=== PATIENT | female | born 1955 | race Caucasian/White ===

== ENCOUNTER 2019-06-10 12:30 | Inpatient (IN) | payer OTHER ==
[~2019-06-10] VITALS: Ht 167.6 cm; Wt 64.7 kg
--- NOTE | 2019-06-10 12:34 | NUR ---
BIB ems frm [facility] for hyponatremia Na 126, pt to bed 7, pt on monitor, vss, pending md peterson
[2019-06-10] MEDS ORDERED: CHLO118L4 TP (13:09)
[2019-06-10] MEDS ORDERED: LEVE500T20 GT (13:09)
[2019-06-10] MEDS ORDERED: DEXT15DR6 OP (13:09)
[2019-06-10] MEDS ORDERED: SIME80TA15 GT (13:09)
[2019-06-10] MEDS ORDERED: SACC250C GT (13:09)
[2019-06-10] MEDS ORDERED: BISA10SU61 RC (13:09)
[2019-06-10] MEDS ORDERED: LORA2TAB95 GT (13:09)
[2019-06-10] MEDS ORDERED: NYST5ORA PO (13:09)
[2019-06-10] MEDS ORDERED: SENN-261 GT (13:09)
[2019-06-10] MEDS ORDERED: DILT-32 GT (13:09)
[2019-06-10] MEDS ORDERED: ARGI1POW17 GT (13:09)
[2019-06-10] MEDS ORDERED: MYCO250C PO (13:09)
[2019-06-10] MEDS ORDERED: MAGN400O6 GT (13:09)
[2019-06-10] MEDS ORDERED: MAGN400T8 GT (13:09)
[2019-06-10] MEDS ORDERED: HYDR-4075 PO (13:09)
[2019-06-10] MEDS ORDERED: POLY17PO4 PO (13:09)
[2019-06-10] MEDS ORDERED: VIT1TABL46 PO (13:09)
[2019-06-10] MEDS ORDERED: THIA100T88 PO (13:09)
[2019-06-10] MEDS ORDERED: MODAFINIL PO (13:09)
[2019-06-10] MEDS ORDERED: HEPA1DIS12 SUBCUT (13:09)
[2019-06-10] MEDS ORDERED: ASCO500C16 GT (13:09)
[2019-06-10] MEDS ORDERED: NA P133E RC (13:09)
[2019-06-10] MEDS ORDERED: CRAN3875 GT (13:09)
[2019-06-10] MEDS ORDERED: ALBU2.5V13 IH (13:09)
[2019-06-10] MEDS ORDERED: LACO100T2 GT (13:09)
[2019-06-10 13:21] LABS: BASOPHILS # (AUTO) 0.1 /CMM (0.0-0.2); BASOPHILS % (AUTO) 0.9 % (0.0-2.0); EOSINOPHILS % (AUTO) 1.4 % (0.0-6.0); HEMATOCRIT 30 % (33-45); HEMOGLOBIN 10.4 g/dL (11.5-14.8); LYMPHOCYTES # (AUTO) 1.3 /CMM (0.8-4.8); LYMPHOCYTES % (AUTO) 15.5 % (20.0-44.0); MEAN CORPUSCULAR HGB CONC 35 g/dl (31.0-36.0); MEAN CORPUSCULAR VOLUME 90 fL (82-100); MONOCYTES # (AUTO) 0.5 /CMM (0.1-1.30); MONOCYTES % (AUTO) 6.1 % (2.0-12.0); NEUTROPHILS # (AUTO) 6.5 /CMM (1.8-8.9); NEUTROPHILS % (AUTO) 76.1 % (43.0-81.0); PLATELET COUNT (AUTO) 341 /CMM (150-450); RED BLOOD CELL COUNT(AUTO) 3.29 MIL/uL (4.0-5.2); WHITE BLOOD COUNT (AUTO) 8.5 K/uL (4.3-11.0)
[2019-06-10 13:39] LABS: ALBUMIN 2.2 g/dL (3.4-5.0); BILIRUBIN,DIRECT 0.1 mg/dL (0.0-0.2); BILIRUBIN,TOTAL 0.3 mg/dL (0.2-1.0); CALCIUM, SERUM 8.6 mg/dL (8.5-10.1); CREATININE 2.2 mg/dL (0.6-1.3); POTASSIUM 4.1 mmol/L (3.5-5.1); TOTAL PROTEIN, SERUM 5.6 g/dL (6.4-8.2)
[2019-06-10 13:39] LABS: APPEARANCE,URINE Clear (CLEAR); BILIRUBIN,URINE Negative (NEGATIVE); BLOOD, URINE Negative Ery/uL (NEGATIVE); COLOR,URINE Yellow (YELLOW); KETONES,URINE Negative (NEGATIVE); LEUKOCYTE ESTERASE ,URINE Negative (NEGATIVE); NITRITE, URINE Negative (NEGATIVE); PROTEIN,URINE Negative (NEGATIVE); UGLUCOSE Negative (NEGATIVE); UROBILINOGEN,URINE 0.2 EU/dL (0.2)
--- NOTE | 2019-06-10 15:46 | NUR ---
called for report nurse not available
--- NOTE | 2019-06-10 15:49 | NUR ---
report given to chaka rn for gustavo pt will be transported to 1st floor
[2019-06-10] MEDS ORDERED: NA PHOS,M-B/NA PHOS,DI-BA 1 EA ENEMA RC PRN (16:00)
[2019-06-10] MEDS ORDERED: POLYETHYLENE GLYCOL 3350 17 GM POWD.PACK PO PRN (16:00)
[2019-06-10] MEDS ORDERED: BISACODYL SUPP (10 MG) 10 MG/SUPP.RECT SUPP.RECT RC PRN (16:00)
[2019-06-10] MEDS ORDERED: ALBUTEROL FS 2.5 MG/0.5 ML VIAL.NEB IH PRN (16:00)
[2019-06-10] MEDS ORDERED: MAGNESIUM HYDROXIDE 30 ML UDC GT PRN (16:00)
--- NOTE | 2019-06-10 16:14 | NUR ---
pt transported to 1st floor
[2019-06-10 16:30] VITALS: BP 140/79
[2019-06-10] MEDS ORDERED: ACETAMINOPHEN 325 MG TABLET PO PRN (16:30)
[2019-06-10] MEDS ORDERED: MAG HYDROX/AL HYDROX/SIMETH 30 ML UDC PO PRN (16:30)
[2019-06-10] MEDS ORDERED: Z GUARD REMEDY 2 OZ OINT TP PRN (16:30)
[2019-06-10] MEDS ORDERED: ONDANSETRON HCL/PF 4 MG/2 ML VIAL IVP PRN (16:30)
[2019-06-10] MEDS ORDERED: MAGNESIUM HYDROXIDE 30 ML UDC PO PRN (16:30)
[2019-06-10] MEDS ORDERED: Medication Not On Formulary EA (Cran/Vitc/Mannose/Inulin/Brom (Uti-Stat Liquid) 3,875 MG GT SCH (17:00)
[2019-06-10] MEDS ORDERED: Medication Not On Formulary EA (Argin/Glut/Cahmb/Collag/Mv-Min (Juven Packet) 1 EACH) GT SCH (17:00)
--- NOTE | 2019-06-10 17:33 | NUR ---
INJECTION MAINTENANCE TECHNICIAN OPENING NOTES RECEIVED PATIENT FROM [facility], REGISTRY NURSE. PATIENT WAS BROUGHT IN FROM ER. DID NOT GET REPORT FROM ER BECAUSE THE PATIENT WAS INITIALLY GOING TO [facility]. PATIENT IS CURRENTLY IN STABLE CONDITION, PLACED ON TELE MONITOR. SINUS RHYTHM/SINUS TACHY AT 102BPM. GENERALIZED EDEMA PRESENT. RECEIVED PATIENT AT 1612. VITAL SIGNS STABLE WITH BP AT140/79. ON AEROSOL OXYGEN 6L. SATURATING WELL. PATIENT SUCTIONED. HAS A TRACH PRESENT. NO SIGNS OF ACUTE RESPIRATORY DISTRESS NOTED. SAFETY MAINTAINED, CALL LIGHT WITHIN REACH, WILL CONTINUE TO MONITOR.
[2019-06-10] MEDS: POLYVINYL ALCOHOL 15 ML BOTTLE EACHEYE SCH (18:30)
[2019-06-10] MEDS: IV NS 0.9% 1,000 ML IV PRN (19:00)
[2019-06-10] MEDS ORDERED: LORAZEPAM 1 MG TABLET GT PRN (19:00)
[2019-06-10] MEDS: hydrALAZINE HCL 10 MG TABLET PO SCH (19:06)
[2019-06-10] MEDS: CHLORHEXIDINE GLUCONATE 15 ML UDC MM SCH (19:06)
[2019-06-10] MEDS: MYCOPHENOLATE MOFETIL 250 MG CAPSULE PO SCH (19:06)
[2019-06-10 20:00] VITALS: BP 161/65
--- NOTE | 2019-06-10 20:09 | NUR ---
SENIOR SALESFORCE DEVELOPER CLOSING NOTES PATIENT ENDORSED TO CEMENT GRINDING MILL OPERATOR NURSE TO CONTINUE CARE. IN STABLE CONDITION, BP MEDICATION AND OTHER SCHEDULED MEDICATIONS ADMINISTERED AFTER THEY WERE VERIFIED BY THE PHARMACY. ADMISSION PAPERWORK IS COMPLETE, PHYSICAL ASSESSMENT WAS DONE AND DOCUMENTED. PATIENT HAS MULTIPLE WOUNDS PRESET, PICTURES WERE TAKEN AND PLACED IN THE CHART. ON AEROCELL 6L SATURATING AT 100%. PATIENT WAS CLEANED, SKIN KEPT CLEAN AND DRY. ALL PATIENT NEEDS MET, SAFETY MAINTAINED, CALL LIGHT WITHIN REACH, CEMENT GRINDING MILL OPERATOR NURSE WILL CONTINUE CARE.
--- NOTE | 2019-06-10 20:10 | NUR ---
INFORMATICS PHYSICIAN LIAISON OPENING NOTES RECEIVED PATIENT FROM AM RN. PATIENT IS CURRENTLY IN STABLE CONDITION, ON TELE MONITOR. SR/ST AT 100s. GENERALIZED EDEMA PRESENT. ON AEROSOL OXYGEN 6L. SATURATING WELL. HAS A TRACH PRESENT. NO SIGNS OF ACUTE RESPIRATORY DISTRESS NOTED AT THIS TIME. SAFETY MAINTAINED, CALL LIGHT WITHIN REACH, WILL CONTINUE TO MONITOR.
--- NOTE | 2019-06-10 20:12 | NUR ---
DID NOT ADMINISTER ARTIFICIAL TEARS BECAUSE THEY WERE NOT YET AVAILABLE. ENDORSED TO BATTERY TESTER FIELD NURSE, WILL GIVE THE NEXT DOSE.
--- NOTE | 2019-06-10 21:05 | NUR ---
REPORT GIVEN TO TAYLER JACKSON FOR BEAR.
[2019-06-10] MEDS: LACTOBACILLUS RHAMNOSUS GG 1 EACH CAP.SPRINK GT SCH (21:06)
[2019-06-10] MEDS: MODAFINIL 100 MG TABLET PO SCH (21:06)
--- NOTE | 2019-06-10 21:07 | NUR ---
RECEIVED REPORT FROM RUKHSANA FOR BEAR
--- NOTE | 2019-06-10 21:08 | NUR ---
PALMIRA RN OPENING NOTES PATIENT OBTUNDED, ON T-PIECE 5L/MIN, 28% FIO2 , NO SIGNS OF RESPIRATORY DISTRESS NOTED. SINUS TACHY ON TELE MONITOR, HR 103. BILATERAL UPPER EXTREMITY PITTING EDEMA NOTED, BILATERAL LOWER EXTREMITY PITTING EDEMA NOTED. RIGHT UPPER ARM MIDLINE INTACT, PATENT, NS INFUSING AT 125CC/HR. BED IN LOW POSITION, LOCKED, CALL LIGHT WITHIN REACH.
[2019-06-10] MEDS: LEVETIRACETAM SOL (5 ML) 100 MG/ML UDC GT SCH (21:10)
[2019-06-10] MEDS: SIMETHICONE 80 MG TAB.CHEW GT SCH (21:10)
[2019-06-10] MEDS: NYSTATIN (PYXIS) 500,000 UNIT/5 ML ORAL.SUSP PO SCH (21:10)
[2019-06-10] MEDS: SENNOSIDES 8.6 MG TABLET GT SCH (21:10)
[2019-06-10] MEDS: LACOSAMIDE 50 MG TABLET GT SCH (21:11)
[2019-06-10] MEDS: HEPARIN SODIUM, PORCINE 5000 UNITS/1 ML VIAL SQ SCH (21:11)
[2019-06-11] VITALS: BP 124/68
--- NOTE | 2019-06-11 01:00 | NUR ---
called epic- spoke with jazmin sullivan to obtain orders to resume nephro feeding from snf 40cc/hr x 20 hours
[2019-06-11] MEDS: NEPRO 1,000 ML BOTTLE GT PRN ×2 (01:08→21:44)
[2019-06-11] MEDS: IV NS 0.9% 1,000 ML IV PRN ×3 (02:53→19:11)
[2019-06-11 04:00] VITALS: BP 146/66
--- NOTE | 2019-06-11 06:28 | NUR ---
PALMIRA RN OPENING NOTES PATIENT OBTUNDED, ON T-PIECE 6L/MIN, 28% FIO2 , NO SIGNS OF RESPIRATORY DISTRESS NOTED. SINUS TACHY ON TELE MONITOR. BILATERAL UPPER EXTREMITY PITTING EDEMA NOTED, BILATERAL LOWER EXTREMITY PITTING EDEMA NOTED. RIGHT UPPER ARM MIDLINE INTACT, PATENT, NS INFUSING AT 125CC/HR. NEPHRO INFUSING AT 40CC/HR, TOLERATING FEEDING WELL. PROVIDED SAFETY AND COMFORT TO PT THROUGHOUT SHIFT, ALL DUE MEDS GIVEN, TURNED AND REPOSITIONED PT EVERY 2 HOURS THROUGHOUT SHIFT. BED IN LOW POSITION, LOCKED, CALL LIGHT WITHIN REACH. WILL ENDORSE TO AM NURSE.
[2019-06-11 07:40] LABS: BASOPHILS # (AUTO) 0.1 /CMM (0.0-0.2); EOSINOPHILS % (AUTO) 1.7 % (0.0-6.0); HEMATOCRIT 29 % (33-45); HEMOGLOBIN 10.1 g/dL (11.5-14.8); LYMPHOCYTES # (AUTO) 1.5 /CMM (0.8-4.8); LYMPHOCYTES % (AUTO) 19.7 % (20.0-44.0); MEAN CORPUSCULAR HGB CONC 35 g/dl (31.0-36.0); MEAN CORPUSCULAR VOLUME 90 fL (82-100); MONOCYTES # (AUTO) 0.6 /CMM (0.1-1.30); MONOCYTES % (AUTO) 7.1 % (2.0-12.0); NEUTROPHILS # (AUTO) 5.5 /CMM (1.8-8.9); NEUTROPHILS % (AUTO) 70.5 % (43.0-81.0); RED BLOOD CELL COUNT(AUTO) 3.19 MIL/uL (4.0-5.2); WHITE BLOOD COUNT (AUTO) 7.8 K/uL (4.3-11.0)
[2019-06-11 07:42] LABS: PLATELET COUNT (AUTO) 354 /CMM (150-450)
[2019-06-11 08:00] VITALS: BP 139/63
--- NOTE | 2019-06-11 08:00 | NUR ---
PALMIRA/RN AM SHIFT INITIAL NOTES RECEIVED PT ASLEEP IN BED, PT OBTUNDED, OPEN EYES, NO GRIMACING OR ACUTE CHANGE OF CONDITION NOTED. PT ON COOL AEROSOL WITH 6 L O2, 28% FIO2, SATURATING @ 95%, RESPIRATIONS EVEN & LABORED, DIMINISHED LUNG SOUNDS. PT NOTED WITH GENERALIZED EDEMA. WITH ON GOING IV INFUSION OF NS @ 125CC/HR, IV SITE PATENT WITH NO S/S OF INFECTION. GTF @ 40CC/HR, NO GASTRIC RESIDUAL, FLUSHED, PATENT. PT IS COMFORTABLE, SCHEDULED AM MEDS TO BE GIVEN. CL WITHIN REACHED AND SAFETY MAINTAINED. ON GOING MONITORING.
[2019-06-11 08:25] LABS: CALCIUM, SERUM 8.3 mg/dL (8.5-10.1); CREATININE 2.1 mg/dL (0.6-1.3); POTASSIUM 3.9 mmol/L (3.5-5.1)
[2019-06-11] MEDS: VIT B CMPLX 3/FA/VIT C/BIOTIN 1 TAB TABLET PO SCH (10:07)
[2019-06-11] MEDS: MYCOPHENOLATE MOFETIL 250 MG CAPSULE PO SCH ×2 (10:07→16:51)
[2019-06-11] MEDS: THIAMINE HCL 100 MG TABLET PO SCH (10:07)
[2019-06-11] MEDS: ASCORBIC ACID 500 MG TABLET GT SCH (10:07)
[2019-06-11] MEDS: SIMETHICONE 80 MG TAB.CHEW GT SCH ×2 (10:07→21:37)
[2019-06-11] MEDS: LACOSAMIDE 50 MG TABLET GT SCH ×2 (10:07→21:37)
[2019-06-11] MEDS: LACTOBACILLUS RHAMNOSUS GG 1 EACH CAP.SPRINK GT SCH ×2 (10:08→16:50)
[2019-06-11] MEDS: CHLORHEXIDINE GLUCONATE 15 ML UDC MM SCH ×2 (10:08→16:50)
[2019-06-11] MEDS: POLYVINYL ALCOHOL 15 ML BOTTLE EACHEYE SCH ×2 (10:08→16:54)
[2019-06-11] MEDS: NYSTATIN (PYXIS) 500,000 UNIT/5 ML ORAL.SUSP PO SCH ×4 (10:08→21:37)
[2019-06-11] MEDS: MODAFINIL 100 MG TABLET PO SCH ×2 (10:08→16:50)
[2019-06-11] MEDS: MAGNESIUM OXIDE 400 MG TABLET GT SCH (10:08)
[2019-06-11] MEDS: LEVETIRACETAM SOL (5 ML) 100 MG/ML UDC GT SCH ×2 (10:08→21:38)
[2019-06-11] MEDS: HEPARIN SODIUM, PORCINE 5000 UNITS/1 ML VIAL SQ SCH ×2 (10:10→21:39)
[2019-06-11] MEDS: hydrALAZINE HCL 10 MG TABLET PO SCH ×2 (10:11→16:51)
--- NOTE | 2019-06-11 10:15 | NUR ---
MS1/RN ROUNDS - WOUND CONSULT PT SEEN & EXAMINED BY WOUND NURSE
--- NOTE | 2019-06-11 10:32 | NUR ---
WOUND CARE CONSULT: PT PRESENTS WITH INCONTINENCE AND IMMOBILITY, GENERALIZED EDEMA, BUTTOCKS IRRITATION DUE TO INCONTINENCE, SACRAL BONY AREA WITH BLANCHABLE REDNESS, PRESENT ON ADMISSION. RECOMMENDATIONS MADE FOR SKIN PROTECTION AND DISCUSSED WITH NURSING STAFF. [facility]. WILL SEE PRN. ADAMS IN AGREEMENT WITH PLAN OF CARE. Addendum: 06/11/19 at 1039 by ELENA JACQUES WNDNU Amended: Links added.
[2019-06-11 16:00] VITALS: BP 144/48
[2019-06-11 16:42] LABS: ABG BASE EXCESS -4.5 mmol/L; ABG OXYGEN SATURATION 97.2 % (92.0-98.5); ABG PCO2 26.1 mmHg (35.0-45.0); ABG PH 7.462 (7.350-7.450); ABG PO2 113.6 mmHg (75.0-100.0); AaDO2 55.2 mmHg; COHb 0.2 % (0.5-1.5); MetHb 0.5 % (0.0-1.5); O2Hb 96.5 % (94.0-97.0); SITE, ABG Right Radial; VENT MODE, BG CA 28%
[2019-06-11] MEDS: IPRATROPIUM NEB FS 0.5 MG/2.5 ML AMPUL.NEB NEB SCH ×2 (16:45→21:03)
[2019-06-11] MEDS: PROSOURCE / PROSTAT (PYXIS) 30 ML UDC GT SCH (16:53)
[2019-06-11] MEDS: ALBUTEROL HALF STRENGTH 1.25 MG/3 ML VIAL.NEB NEB SCH ×2 (17:30→21:03)
--- NOTE | 2019-06-11 19:05 | NUR ---
MS RN NOTE RECEIVED PT IN STABLE CONDITION, OBTUNDED, NOTED WITH T-PIECE ON COOL AEROSOL. GTUBE IN PLACE WITH FEEDING INFUSING, MINIMAL RESIDUAL. TEO MIDLINE IN PLACE NOTED WITH IVF INFUSING. ALL CURRENT NEEDS ATTENDED TO. BED LOW, LOCKED, UPPER RAILS UP, AND CALL LIGHT WITHIN REACH. WILL CONT. TO MONITOR.
--- NOTE | 2019-06-11 19:30 | NUR ---
MS RN CLOSING NOTES PT ON STABLE CONDITION NO SIGN AND SYMPTOMS OF RESPIRATORY DISTRESS, NO SIGN OF PAIN NOTED, STILL ON CONTINUOS COOL AEROSOL AT 285 FIO2 AND 5L O2 NO SIGNIFICANT CHANGES ON CONDITION NOTED, ALL NEEDS ATTENDED AND MET, KEPT COMFORTABLY AND SAFELY ON BED WILL ENDORSE TO SUPERVISOR DOCK NURSE
[2019-06-11 19:55] LABS: URINE TOTAL PROTEIN 70.9 mg/dL (0-11.9)
[2019-06-11 19:57] LABS: APPEARANCE,URINE CLOUDY (CLEAR); BILIRUBIN,URINE NEGATIVE (NEGATIVE); BLOOD, URINE SMALL Ery/uL (NEGATIVE); COLOR,URINE YELLOW (YELLOW); KETONES,URINE NEGATIVE (NEGATIVE); LEUKOCYTE ESTERASE ,URINE LARGE (NEGATIVE); NITRITE, URINE NEGATIVE (NEGATIVE); PH,URINE 5.5 (5.0-8.0); PROTEIN,URINE 30 mg/dl (NEGATIVE); UGLUCOSE NEGATIVE (NEGATIVE); UROBILINOGEN,URINE 0.2 EU/dL (0.2)
[2019-06-11 20:27] LABS: BACTERIA,URINE 1+ /HPF (None Seen); RBC,URINE 0-2 /HPF (0-2); SQUAMOUS EPITHELIAL CELL,UR Few /HPF (None Seen); WBC,URINE TOO NUMEROUS TO COUN /HPF (0-3)
[2019-06-11] MEDS: SENNOSIDES 8.6 MG TABLET GT SCH (21:37)
[2019-06-11 21:56] LABS: EOSINOPHIL,URINE None Seen
[2019-06-12] MEDS: IPRATROPIUM NEB FS 0.5 MG/2.5 ML AMPUL.NEB NEB SCH ×7 (00:19→23:51)
[2019-06-12] MEDS: ALBUTEROL HALF STRENGTH 1.25 MG/3 ML VIAL.NEB NEB SCH ×5 (00:19→23:51)
[2019-06-12 04:00] VITALS: BP 135/50
[2019-06-12] MEDS: IV NS 0.9% 1,000 ML IV PRN ×2 (05:25→18:10)
--- NOTE | 2019-06-12 06:18 | NUR ---
MS RN NOTE PT REMAINS IN STABLE CONDITION, OBTUNDED, NOTED WITH T-PIECE ON COOL AEROSOL. GTUBE IN PLACE WITH FEEDING INFUSING, MINIMAL RESIDUAL. TEO MIDLINE IN PLACE NOTED WITH IVF INFUSING. ALL CURRENT NEEDS ATTENDED TO. BED LOW, LOCKED, UPPER RAILS UP, AND CALL LIGHT WITHIN REACH. WILL CONT. TO MONITOR AND ENDORSE TO NEXT SHIFT FOR BEAR.
[2019-06-12 07:28] LABS: BILIRUBIN,TOTAL 0.2 mg/dL (0.2-1.0); CALCIUM, SERUM 8.6 mg/dL (8.5-10.1); CREATININE 1.7 mg/dL (0.6-1.3); MAGNESIUM 1.9 mg/dL (1.8-2.4); PHOSPHORUS 6.3 mg/dL (2.5-4.9); POTASSIUM 3.7 mmol/L (3.5-5.1); TOTAL PROTEIN, SERUM 5.5 g/dL (6.4-8.2)
[2019-06-12 08:00] VITALS: BP 149/59
[2019-06-12] MEDS: POLYVINYL ALCOHOL 15 ML BOTTLE EACHEYE SCH ×2 (09:00→17:56)
[2019-06-12 09:19] LABS: URIC ACID 7.6 mg/dL (2.6-7.2)
[2019-06-12 10:19] LABS: THYROID STIMULATING HORMONE 4.609 uIU/mL (0.358-3.74)
[2019-06-12] MEDS: MAGNESIUM OXIDE 400 MG TABLET GT SCH (10:30)
[2019-06-12] MEDS: LEVETIRACETAM SOL (5 ML) 100 MG/ML UDC GT SCH ×2 (10:30→21:38)
[2019-06-12] MEDS: NYSTATIN (PYXIS) 500,000 UNIT/5 ML ORAL.SUSP PO SCH ×4 (10:30→21:40)
[2019-06-12] MEDS: LACTOBACILLUS RHAMNOSUS GG 1 EACH CAP.SPRINK GT SCH ×2 (10:30→17:54)
[2019-06-12] MEDS: CHLORHEXIDINE GLUCONATE 15 ML UDC MM SCH ×2 (10:30→17:54)
[2019-06-12] MEDS: ASCORBIC ACID 500 MG TABLET GT SCH (10:31)
[2019-06-12] MEDS: LACOSAMIDE 50 MG TABLET GT SCH ×2 (10:31→21:38)
[2019-06-12] MEDS: MODAFINIL 100 MG TABLET PO SCH ×2 (10:31→17:54)
[2019-06-12] MEDS: THIAMINE HCL 100 MG TABLET PO SCH (10:31)
[2019-06-12] MEDS: MYCOPHENOLATE MOFETIL 250 MG CAPSULE PO SCH ×2 (10:31→17:54)
[2019-06-12] MEDS: hydrALAZINE HCL 10 MG TABLET PO SCH ×2 (10:31→17:54)
[2019-06-12] MEDS: VIT B CMPLX 3/FA/VIT C/BIOTIN 1 TAB TABLET PO SCH (10:31)
[2019-06-12] MEDS: SIMETHICONE 80 MG TAB.CHEW GT SCH ×2 (10:31→21:42)
[2019-06-12] MEDS: HEPARIN SODIUM, PORCINE 5000 UNITS/1 ML VIAL SQ SCH ×2 (10:33→21:41)
[2019-06-12] MEDS: PROSOURCE / PROSTAT (PYXIS) 30 ML UDC GT SCH ×2 (10:35→17:55)
[2019-06-12 16:00] VITALS: BP 141/50
--- NOTE | 2019-06-12 19:25 | NUR ---
RN OPEN NOTES RECEIVED PATIENT RESTING IN BED. A/OX1,RESPONSES TO NAME. NO SIGNS OF DISTRESS OR DISCOMFORT. BREATHING EVEN AND UNLABORED. HAS T-PIECE ON 5L O2. HAS TEO MIDLINE WITH NS INFUSING, PATENT AND INTACT, NO SIGNS OF REDNESS OR INFILTRATION. HAS GTUBE INTACT WITH FEEDING RUNNNING, PATIENT TOLERATING WELL. BED IN LOW LOCKED POSITION WITH SIDE RAILS X2. CALL LIGHT WITHIN REACH. WILL CONTINUE TO MONITOR.
[2019-06-12 20:00] VITALS: BP 165/68
[2019-06-12] MEDS: SENNOSIDES 8.6 MG TABLET GT SCH (21:38)
[2019-06-12] MEDS ORDERED: ALBUTEROL HALF STRENGTH 1.25 MG/3 ML VIAL.NEB NEB SCH (23:30)
[2019-06-13] MEDS: ALBUTEROL HALF STRENGTH 1.25 MG/3 ML VIAL.NEB NEB SCH ×6 (03:34→23:18)
[2019-06-13] MEDS: IPRATROPIUM NEB FS 0.5 MG/2.5 ML AMPUL.NEB NEB SCH ×6 (03:34→23:18)
[2019-06-13 04:00] VITALS: BP 157/63
[2019-06-13] MEDS: IV NS 0.9% 1,000 ML IV PRN (04:56)
[2019-06-13] MEDS: NEPRO 1,000 ML BOTTLE GT PRN (04:56)
[2019-06-13 06:07] LABS: PTH, INTACT 18 pg/mL (15-65)
[2019-06-13 06:44] LABS: BASOPHILS % (AUTO) 0.5 % (0.0-2.0); EOSINOPHILS % (AUTO) 0.7 % (0.0-6.0); HEMATOCRIT 26 % (33-45); HEMOGLOBIN 8.9 g/dL (11.5-14.8); LYMPHOCYTES % (AUTO) 12.9 % (20.0-44.0); MEAN CORPUSCULAR HGB CONC 35 g/dl (31.0-36.0); MEAN CORPUSCULAR VOLUME 92 fL (82-100); MONOCYTES # (AUTO) 0.5 /CMM (0.1-1.30); NEUTROPHILS # (AUTO) 5.9 /CMM (1.8-8.9); NEUTROPHILS % (AUTO) 78.9 % (43.0-81.0); PLATELET COUNT (AUTO) 333 /CMM (150-450); RED BLOOD CELL COUNT(AUTO) 2.82 MIL/uL (4.0-5.2); WHITE BLOOD COUNT (AUTO) 7.5 K/uL (4.3-11.0)
--- NOTE | 2019-06-13 06:53 | NUR ---
RN CLOSING NOTES PATIENT RESTING COMFORTABLY IN BED, EASILY AROUSABLE. A/OX1. RESPONSES TO NAME. NO SIGNS OF DISTRESS OR DISCOMFORT. BREATHING EVEN AND UNLABORED. HAS T-PIECE ON 5L O2, TOLERATING WELL. HAS TEO MIDLINE WITH NS INFUSING, PATENT AND INTACT, NO SIGNS OF REDNESS OR INFILTRATION. HAS GTUBE INTACT WITH FEEDING RUNNNING, PATIENT TOLERATING WELL NO RESIDUAL NOTED THROUGHOUT SHIFT. ALL NEEDS MET. NO SIGNIFICANT CHANGES THROUGH THE NIGHT. PATIENT KEPT CLEAN, DRY AND COMFORTABLE. REPOSITIONED Q2H. BED IN LOW LOCKED POSITION WITH SIDE RAILS X2. CALL LIGHT WITHIN REACH. WILL ENDORSE TO AM SHIFT FOR BEAR.
[2019-06-13 07:00] LABS: CALCIUM, SERUM 8.7 mg/dL (8.5-10.1); CREATININE 1.1 mg/dL (0.6-1.3); MAGNESIUM 1.7 mg/dL (1.8-2.4); PHOSPHORUS 4.4 mg/dL (2.5-4.9)
[2019-06-13 08:00] VITALS: BP 171/52
[2019-06-13] MEDS ORDERED: IV NS 0.9% 1,000 ML IV PRN (08:57)
--- NOTE | 2019-06-13 08:58 | NUR ---
MS RN NOTES PER MD BARR CHANGE THE NS RATE FROM 125 ML/H TO 75 ML/HR.
[2019-06-13] MEDS: hydrALAZINE HCL 10 MG TABLET PO SCH ×2 (09:00→17:00)
[2019-06-13] MEDS: POTASSIUM CL. PREMIX PERIPHER. 50 ML IV SCH ×5 (09:13→14:08)
[2019-06-13] MEDS: POLYVINYL ALCOHOL 15 ML BOTTLE EACHEYE SCH ×2 (09:20→18:06)
[2019-06-13] MEDS: MAGNESIUM OXIDE 400 MG TABLET GT SCH (09:21)
[2019-06-13] MEDS: LEVETIRACETAM SOL (5 ML) 100 MG/ML UDC GT SCH ×2 (09:21→21:43)
[2019-06-13] MEDS: LACTOBACILLUS RHAMNOSUS GG 1 EACH CAP.SPRINK GT SCH ×2 (09:21→18:06)
[2019-06-13] MEDS: SIMETHICONE 80 MG TAB.CHEW GT SCH ×2 (09:21→21:42)
[2019-06-13] MEDS: ASCORBIC ACID 500 MG TABLET GT SCH (09:22)
[2019-06-13] MEDS: CHLORHEXIDINE GLUCONATE 15 ML UDC MM SCH ×2 (09:22→18:04)
[2019-06-13] MEDS: LACOSAMIDE 50 MG TABLET GT SCH ×2 (09:22→21:42)
[2019-06-13] MEDS: PROSOURCE / PROSTAT (PYXIS) 30 ML UDC GT SCH ×2 (09:22→18:06)
[2019-06-13] MEDS: MYCOPHENOLATE MOFETIL 250 MG CAPSULE PO SCH ×2 (09:23→18:05)
[2019-06-13] MEDS: VIT B CMPLX 3/FA/VIT C/BIOTIN 1 TAB TABLET PO SCH (09:23)
[2019-06-13] MEDS: THIAMINE HCL 100 MG TABLET PO SCH (09:24)
[2019-06-13] MEDS: MODAFINIL 100 MG TABLET PO SCH ×2 (09:24→18:04)
[2019-06-13] MEDS: NYSTATIN (PYXIS) 500,000 UNIT/5 ML ORAL.SUSP PO SCH ×4 (09:24→21:42)
[2019-06-13] MEDS: HEPARIN SODIUM, PORCINE 5000 UNITS/1 ML VIAL SQ SCH ×2 (09:46→21:44)
--- NOTE | 2019-06-13 09:47 | NUR ---
MS RN NOTES HYDRALAZINE NOT ADMINISTRATED DUE TO BP 136/41.
[2019-06-13 12:00] VITALS: BP 136/60
[2019-06-13 13:08] LABS: *SPE A/G RATIO 0.8 (0.7-1.7); *SPE ALBUMIN 2.2 g/dL (2.9-4.4); *SPE ALPHA-1-GLOBULIN 0.3 g/dL (0.0-0.4); *SPE BETA GLOBULIN 0.8 g/dL (0.7-1.3); *SPE GLOBULIN, TOTAL 2.6 g/dL (2.2-3.9); *SPE M-SPIKE Not Observed g/dL (Not Observed); *SPEGAMMA GLOBULIN 0.5 g/dL (0.4-1.8)
[2019-06-13] MEDS ORDERED: MEROPENEM 500 MG in IV NS 0.9% 50 ML IV ONE (14:00)
--- NOTE | 2019-06-13 14:21 | NUR ---
MS RN NOTES CHECKED THE IV COMPATIBILITY FOR POTASSIUM CHLORIDE AND MEROPENEM TO INFUSE. BOTH COMPATIBLE.
[2019-06-13 16:00] VITALS: BP 130/56
--- NOTE | 2019-06-13 18:19 | NUR ---
YESICA RN NOTES: HYDRALAZINE NOT GIVEN. BP 138/60, WASTED IN THE BIN IN MED ROOM
--- NOTE | 2019-06-13 19:15 | NUR ---
MS RN NOTES PATIENT IN BED NON VERBAL ABLE TO OPEN EYES WHEN NAME CALLED. RECEIVED A CALL FROM PATIENT'S , YOHANNES, REGARDING HER MEDICATION FOR KIDNEY TRANSPLANT. NOTIFIED DR BARR AND ORDER PLACED IN THE SYSTEM. NO RESIDUAL NOTED FROM G TUBE, NO SOB OR DISCOMFORT NOTED. ALL NEEDS ATTENDED. CALL LIGHT WITHIN REACH BED AT THE LOWEST POSITION LOCKED, ENDORSED TO OYSTER CULLER NURSE FOR BEAR.
[2019-06-13 20:00] VITALS: BP 143/53
[2019-06-13] MEDS: SENNOSIDES 8.6 MG TABLET GT SCH (21:42)
[2019-06-13] MEDS: HYDROCODONE/APAP 5/325MG 1 EACH TABLET PO PRN (21:42)
[2019-06-13] MEDS: predniSONE 5 MG TABLET PO SCH (21:45)
[2019-06-13] MEDS: TACROLIMUS 0.5 MG/ML GT SCH (21:46)
[2019-06-13] MEDS: MEROPENEM 500 MG in IV NS 0.9% 100 ML IV SCH (21:48)
[2019-06-14] MEDS: HYDROCODONE/APAP 5/325MG 1 EACH TABLET PO PRN ×2 (02:02→06:03)
[2019-06-14] MEDS: ALBUTEROL HALF STRENGTH 1.25 MG/3 ML VIAL.NEB NEB SCH ×4 (03:26→15:36)
[2019-06-14] MEDS: IPRATROPIUM NEB FS 0.5 MG/2.5 ML AMPUL.NEB NEB SCH ×4 (03:26→15:36)
[2019-06-14 04:00] VITALS: BP 136/47
[2019-06-14] MEDS: MEROPENEM 500 MG in IV NS 0.9% 100 ML IV SCH ×2 (06:02→14:55)
[2019-06-14] MEDS: NEPRO 1,000 ML BOTTLE GT PRN (06:05)
--- NOTE | 2019-06-14 07:00 | NUR ---
OPERATIONS SUPPORT PROFESSIONALS NOTES PATIENT IS IN BED NON VERBAL. PATIENT IS DOES RESPOND TO QUESTIONS ASKED WITH YES AND NO. PATIENT EYES OPEN WHEN PATIENT IS WOKEN PATIENT HAS DIAPER. PATIENT DOES HAVE PERINEAL REDNESS. PATIENT IS ON NEPRO @ 40 ML/ HR . PATIENT DOES HAVE L UA A/V FISTULA . PATIENT HAS R UA MID NS @ 75ML/ HR. NO SIGNS OF SOB, NO ACUTE RESPIRATORY DISTRESS. PATIENT IS ON PORTEX FIO2 20% . BED LOCKED AND LOWEST POSITION CALL LIGHT WITH IN REACH ALL SAFETY MEASURE IMPLEMENTED PER HOSPITAL POLICY
[2019-06-14 07:10] LABS: BASOPHILS # (AUTO) 0.1 /CMM (0.0-0.2); BASOPHILS % (AUTO) 0.9 % (0.0-2.0); EOSINOPHILS % (AUTO) 1.2 % (0.0-6.0); HEMATOCRIT 26 % (33-45); HEMOGLOBIN 8.9 g/dL (11.5-14.8); LYMPHOCYTES # (AUTO) 1.3 /CMM (0.8-4.8); LYMPHOCYTES % (AUTO) 20.4 % (20.0-44.0); MEAN CORPUSCULAR HGB CONC 34 g/dl (31.0-36.0); MEAN CORPUSCULAR VOLUME 94 fL (82-100); MONOCYTES # (AUTO) 0.3 /CMM (0.1-1.30); MONOCYTES % (AUTO) 4.8 % (2.0-12.0); NEUTROPHILS # (AUTO) 4.6 /CMM (1.8-8.9); NEUTROPHILS % (AUTO) 72.7 % (43.0-81.0); PLATELET COUNT (AUTO) 341 /CMM (150-450); RED BLOOD CELL COUNT(AUTO) 2.81 MIL/uL (4.0-5.2); WHITE BLOOD COUNT (AUTO) 6.3 K/uL (4.3-11.0)
[2019-06-14] MEDS ORDERED: MYCOPHENOLATE MOFETIL SUSP 500 MG/2.5 ML UDC GT SCH (09:00)
[2019-06-14] MEDS: hydrALAZINE HCL 10 MG TABLET PO SCH ×2 (09:00→17:53)
[2019-06-14] MEDS: CHLORHEXIDINE GLUCONATE 15 ML UDC MM SCH (09:27)
[2019-06-14] MEDS: SIMETHICONE 80 MG TAB.CHEW GT SCH (09:28)
[2019-06-14] MEDS: THIAMINE HCL 100 MG TABLET PO SCH (09:28)
[2019-06-14] MEDS: MODAFINIL 100 MG TABLET PO SCH (09:28)
[2019-06-14] MEDS: NYSTATIN (PYXIS) 500,000 UNIT/5 ML ORAL.SUSP PO SCH ×2 (09:28→13:08)
[2019-06-14] MEDS: LACOSAMIDE 50 MG TABLET GT SCH (09:28)
[2019-06-14] MEDS: VIT B CMPLX 3/FA/VIT C/BIOTIN 1 TAB TABLET PO SCH (09:28)
[2019-06-14] MEDS: LACTOBACILLUS RHAMNOSUS GG 1 EACH CAP.SPRINK GT SCH (09:28)
[2019-06-14] MEDS: ASCORBIC ACID 500 MG TABLET GT SCH (09:28)
[2019-06-14] MEDS: LEVETIRACETAM SOL (5 ML) 100 MG/ML UDC GT SCH (09:28)
[2019-06-14] MEDS: MAGNESIUM OXIDE 400 MG TABLET GT SCH (09:28)
[2019-06-14] MEDS: PROSOURCE / PROSTAT (PYXIS) 30 ML UDC GT SCH (09:29)
[2019-06-14] MEDS: TACROLIMUS 0.5 MG/ML GT SCH (09:31)
[2019-06-14] MEDS: HEPARIN SODIUM, PORCINE 5000 UNITS/1 ML VIAL SQ SCH (09:33)
[2019-06-14] MEDS: predniSONE 5 MG TABLET PO SCH (09:33)
[2019-06-14] MEDS: POLYVINYL ALCOHOL 15 ML BOTTLE EACHEYE SCH (09:47)
[2019-06-14 11:37] LABS: CALCIUM, SERUM 9.2 mg/dL (8.5-10.1); CREATININE 0.9 mg/dL (0.6-1.3); MAGNESIUM 1.6 mg/dL (1.8-2.4); PHOSPHORUS 3.3 mg/dL (2.5-4.9); POTASSIUM 4.4 mmol/L (3.5-5.1)
[2019-06-14] MEDS: Magnesium 1GM/D5W 100ML PREMIX 100 ML IV SCH ×2 (11:45→12:55)
[2019-06-14] MEDS ORDERED: MERO500V21 IV (11:52)
[2019-06-14 12:00] VITALS: BP 153/67
[2019-06-14 17:53] VITALS: BP 141/56
--- NOTE | 2019-06-14 19:22 | NUR ---
RN MS NOTES NO CHANGES IN PATIENTS CONDITION. BED LOCKED AND LOWEST POSITION CALL LIGHT WITH IN REACH ALL SAFETY MEASURES IMPLEMENTED PER HOSPITAL POLICY DISCHARGE PAPERS COMPLETED SUPERVISOR TOY ASSEMBLY SAID OKAY TO DISCHARGE - FAMILY KNOWS ABOUT DISCHARGE TRANSPORT NOTIFIED RECEIVED PATIENT REPORT FROM YEIMY SOOD
== END 2019-06-14 18:00 | DRG 682 ==
LOC: ER 12:35 → TELE1 15:23 → TELE-TD 20:57 → MEDSG1 06-11 11:09
PROVIDERS: ADMIT Internal Medicine; ATTEND Internal Medicine
DX: N17.0 Acute kidney failure with tubular necrosis (principal); J96.90 Respiratory failure, unspecified, unspecified whether with hypoxia or hypercapnia; E43 Unspecified severe protein-calorie malnutrition; G92 Toxic encephalopathy; E87.1 Hypo-osmolality and hyponatremia; N39.0 Urinary tract infection, site not specified; G40.909 Epilepsy, unspecified, not intractable, without status epilepticus; I10 Essential (primary) hypertension; R13.10 Dysphagia, unspecified; R62.7 Adult failure to thrive; Z93.1 Gastrostomy status; B96.1 Klebsiella pneumoniae [K. pneumoniae] as the cause of diseases classified elsewhere; E86.1 Hypovolemia; D64.9 Anemia, unspecified; Z93.0 Tracheostomy status; E88.09 Other disorders of plasma-protein metabolism, not elsewhere classified; M62.50 Muscle wasting and atrophy, not elsewhere classified, unspecified site; Z68.23 Body mass index [BMI] 23.0-23.9, adult
CPT/HCPCS: 31720; 36415; 36600; 71045-TC; 80048-TC; 80053-TC; 80076-TC; 81000-TC; 82550-TC; 82570-TC; 82728-TC; 82803-TC; 83540-TC; 83605-TC; 83735-TC; 83935-TC; 83970; 84100-TC; 84155; 84155-TC; 84165; 84300-TC; 84443-TC; 84484-TC; 84550-TC; 85025-TC; 85730-TC; 87040-TC; 87081-TC; 87086-TC; 87186-TC; 94640-TC; 94664-TC; 94760-TC; A4216; A4623; A6403; G0378; J1644; J1953; J2185; J3475; J3480; J7030; J7512; J7517